=== PATIENT | male | born 1985 | race Caucasian/White ===

== ENCOUNTER 2022-04-08 19:36 | Emergency (ER) | payer MEDICAID ==
[~2022-04-08] VITALS: Ht 167.6 cm; Wt 90.0 kg
[2022-04-08 20:28] VITALS: BP 124/75
== END 2022-04-08 23:33 | disposition left against medical advice (07) ==
LOC: ER 19:37
DX: S81.852A Open bite, left lower leg, initial encounter (principal); Z53.21 Procedure and treatment not carried out due to patient leaving prior to being seen by health care provider; W54.0XXA Bitten by dog, initial encounter; Y93.89 Activity, other specified; Y92.89 Other specified places as the place of occurrence of the external cause; Y99.8 Other external cause status

== ENCOUNTER 2025-06-08 17:18 | Emergency (ER) | payer MEDICAID ==
[~2025-06-08] VITALS: Ht 165.1 cm; Wt 95.5 kg
[2025-06-08 17:23] VITALS: BP 146/86; PULSE 91; RESP 14; O2SAT 100
--- NOTE | 2025-06-08 18:26 | Physician Documentation ---
History of Present Illness ~ Chief Complaint: Knee Pain Stated Complaint: L KNEE PAIN Time Seen by MD: 17:38 Primary Medical Doctor: none HPI Patient is seen today with complaints of pain of his left knee. Patient states he likely got a thorn from a black very posterior something in his skin of his left knee and it has become red and swollen and indurated. Patient denies any f ludmila or chills and has no other concern or complaint at this time. Tetanus witin 5 years: Yes Medication Reconciliation Allergies: Coded Allergies: No Known Allergies (Unverified , 09/27/13) Past Medical History Past Medical History: No Pertinent History, [place] Past Surgical History: no surgical history Alcohol Use: Occasionally Drug Use: marijuana Lives In: Home Review of Systems Constitutional: Denies: chills, fever, weakness Eyes: Denies: pain, blurred vision ENT: Denies: ear pain, nose pain, throat pain, mouth pain Respiratory: Denies: cough, shortness of breath Cardiovascular: Denies: chest pain, palpitations Gastrointestinal: Denies: abdominal pain, nausea, vomiting Genitourinary: Denies: burning, dysuria Male Genitalia: Denies: penile discharge, testicular pain Neurological: Denies: headache, dizziness Musculoskeletal: Denies: pain, swelling Integumentary: Denies: rash, lesions Allergic/Immunologic: Denies: hives, itching Hematologic/Lymphatic: Denies: no symptoms reported Psychiatric: Denies: depression, anxiety Physical Exam Vital Signs: Temperature: 98.7, Heart Rate: 91, Respiratory Rate: 14, BP: 146/86, Pulse Oximetry: 100, Weight: 95.450 Oxygen Flow Rate: 0 Progress Results/Orders Results/Orders Vital Signs 06/08/25 17:23 Temp 98.7 Pulse 91 Resp 14 B/P (MAP) 146/86 Pulse Ox 100 O2 Flow Rate 0 Medical Decision Making Findings Patient is seen today with complaints of pain of his left knee. Patient states he likely got a thorn from a black very posterior something in his skin of his left knee and it has become red and swollen and indurated. Patient denies any fevers or chills and has no other concern or complaint at this time. [facility] Prescription of Bactrim DS sent to patient's pharmacy. Patient will follow up with primary care in 2-3 days if no better as needed sooner. Return to ED with any worsening, concerning or changing symptoms. Departure Disposition: HOME / SELF CARE / HOMELESS Impression: Primary Impression: Cellulitis Qualified Codes: L03.116 - Cellulitis of left lower limb Condition: Stable Discharge Instructions: Cellulitis, Adult, [id number] Referrals: NO PRIMARY CARE PROVIDER (PCP) Prescriptions Sulfamethoxazole/Trimethoprim (Bactrim Ds Tablet) 800 Mg-160 Mg Tablet 1 TAB PO Q12H for 10 Days, #20 TAB Prov: RYAN HENNESSY 06/08/25 Signature Scribe Signature: No scribe Attestation: No scribe RYAN HENNESSY PAC Jun 08, 2025 18:26
[2025-06-08] MEDS ORDERED: SULF1TAB49 PO (18:28)
[2025-06-08 18:37] VITALS: TEMP 98.7
[2025-06-08] MEDS: sulfamethoxazole/trimethoprim DS (800/160mg) tablet PO STA (18:41)
== END 2025-06-08 18:44 | disposition home or self-care (01) ==
LOC: ER 17:18
DX: L03.116 Cellulitis of left lower limb (principal)
CPT/HCPCS: 99283